=== PATIENT | male | born 1965 | race Caucasian/White ===

== ENCOUNTER 2024-06-02 07:51 | Outpatient (CLI) | payer OTHER | END 2024-06-02 07:57 | disposition home or self-care (01) | LOC: SONOGRAMA 07:51 | PROVIDERS: ATTEND Pathology Anatomic Pathology & Clinical Pathology | DX: D34 Benign neoplasm of thyroid gland (principal); E07.89 Other specified disorders of thyroid; E04.1 Nontoxic single thyroid nodule ==

== ENCOUNTER 2025-03-24 07:16 | Outpatient (CLI) | payer OTHER | END 2025-03-24 07:28 | disposition home or self-care (01) | LOC: SONOGRAMA 07:16 | PROVIDERS: ATTEND Internal Medicine Endocrinology, Diabetes & Metabolism | DX: E04.8 Other specified nontoxic goiter (principal) ==